=== PATIENT | male | born 1950 | race Caucasian/White ===

== ENCOUNTER 2016-05-20 14:26 | Outpatient (CLI) | payer MEDICARE, BC, OTHER | END 2016-05-20 14:27 | disposition home or self-care (01) | DX: R05 Cough (principal) ==

== ENCOUNTER 2016-07-10 12:04 | Outpatient (CLI) | payer MEDICARE, BC, OTHER ==
[2016-07-10 17:02] VITALS: BP 130/90
--- NOTE | 2016-07-11 13:43 | CARDIAC PROCEDURE NOTE ---
DATE OF SERVICE: PROCEDURE: Ahmet protocol treadmill for echocardiographic imaging. INDICATIONS: A 66-year-old male with atypical chest pain and positive cardiac risk factors. DESCRIPTION OF PROCEDURE: The patient was exercised in the standard fashion on Ahmet protocol for jus t shy of 9 minutes. He achieved greater than 85% maximum predicted heart rate. He had no diagnostic S T or T-wave changes. His blood pressure response was hypertensive. Some baseline PACs and PVCs resolv ed with exercise and returned with recovery. He experienced no chest pain, lightheadedness or other s ymptoms. IMPRESSION: Hypertensive response to exercise but otherwise unremarkable treadmill test performed for echocardiographic imaging. See cardiac report for details. JOB #: [id number] EXT JOB #:[id number]
== END 2016-07-10 12:05 | disposition home or self-care (01) ==
LOC: DI 12:04
PROVIDERS: ATTEND Physician Assistant Medical
DX: I10 Essential (primary) hypertension (principal); E78.5 Hyperlipidemia, unspecified; G47.33 Obstructive sleep apnea (adult) (pediatric); K21.9 Gastro-esophageal reflux disease without esophagitis
CPT/HCPCS: 93350

== ENCOUNTER 2016-10-16 12:00 | Day surgery (SDC) | payer MEDICARE, BC, OTHER ==
[2016-10-16] MEDS ORDERED: LACTATED RINGERS 1,000 ML IV ONE (12:20)
[2016-10-16] MEDS ORDERED: fentaNYL 100 MCG/2 ML VIAL IVP ONE (13:24)
[2016-10-16] MEDS ORDERED: MIDAZOLAM 2 MG/2 ML VIAL IVP ONE (13:24)
[2016-10-16 14:14] VITALS: BP 113/74
== END 2016-10-16 12:01 | disposition home or self-care (01) ==
LOC: SDS 12:00
PROVIDERS: ATTEND Internal Medicine
PROC: 0DBM8ZX Excision of Descending Colon, Via Natural or Artificial Opening Endoscopic, Diagnostic (ICD-10-PCS; principal; 2016-10-16 13:00)
DX: Z12.11 Encounter for screening for malignant neoplasm of colon (principal); D12.4 Benign neoplasm of descending colon; K57.30 Diverticulosis of large intestine without perforation or abscess without bleeding; K64.4 Residual hemorrhoidal skin tags; K64.8 Other hemorrhoids
CPT/HCPCS: 45380; 88305; J7120

== ENCOUNTER 2016-10-22 09:16 | Outpatient (CLI) | payer MEDICARE, BC, OTHER ==
[2016-10-22 09:37] LABS: BASOPHILS # (AUTO) 0.1 10^3/uL (0.0-0.1); BASOPHILS % (AUTO) 1.4 %; EOSINOPHILS # (AUTO) 0.2 10^3/uL (0.0-0.7); EOSINOPHILS % (AUTO) 4.1 %; HCT - HEMATOCRIT 39.4 % (42.0-52.0); HGB - HEMOGLOBIN 13.7 g/dL (14.0-18.0); LYMPHOCYTES # (AUTO) 1.5 10^3/uL (1.5-3.5); LYMPHOCYTES % (AUTO) 37.9 %; MEAN CORPUSCULAR HEMOGLOBIN 31.2 pg (27.0-31.0); MEAN CORPUSCULAR HGB CONC 34.8 g/dL (32.0-36.0); MEAN CORPUSCULAR VOLUME 89.7 fL (80.0-94.0); MEAN PLATELET VOLUME 8.6 fL (7.4-11.4); MONOCYTES # (AUTO) 0.5 10^3/uL (0.0-1.0); MONOCYTES % (AUTO) 11.1 %; NEUTROPHILS # (AUTO) 1.9 10^3/uL (1.5-6.6); NEUTROPHILS % (AUTO) 45.5 %; NUCLEATED RED BLOOD CELLS AUTO 0.1 /100WBC; RED BLOOD COUNT 4.39 10^6/uL (4.70-6.10); RED CELL DISTRIBUTION WIDTH 12.7 % (12.0-15.0); UNCORRECTED WHITE BLOOD COUNT 4.1 x10^3/uL; WHITE BLOOD COUNT 4.1 x10^3/uL (4.8-10.8)
[2016-10-22 10:22] LABS: ALBUMIN/GLOBULIN RATIO 1.4 (1.0-2.2); BILIRUBIN,TOTAL 1.8 mg/dL (0.2-1.0); BUN - BLOOD UREA NITROGEN 20 mg/dL (6-20); CALCIUM 8.9 mg/dL (8.5-10.3); CARBON DIOXIDE - CO2 27 mmol/L (21-32); CHLORIDE 103 mmol/L (101-111); CHOL/HDL RATIO 3.8 (<5.0); CHOLESTEROL 132 mg/dL; CREATININE 1.2 mg/dL (0.6-1.2); GFR - MDRD 60 (>89); GLUCOSE 106 mg/dL (70-100); HDL CHOLESTEROL 35 mg/dL; LDL/HDL RATIO 2.3 (<3.6); SODIUM 137 mmol/L (135-145); TOTAL PROTEIN 7.2 g/dL (6.7-8.2); TRIGLYCERIDES 83 mg/dL; VLDL CHOLESTEROL 17 mg/dL
== END 2016-10-22 09:17 | disposition home or self-care (01) ==
LOC: LAB 09:16
PROVIDERS: ATTEND Physician Assistant Medical
DX: Z12.5 Encounter for screening for malignant neoplasm of prostate (principal); I10 Essential (primary) hypertension; Z11.59 Encounter for screening for other viral diseases; Z72.89 Other problems related to lifestyle; E88.81 Metabolic syndrome and other insulin resistance; Z79.899 Other long term (current) drug therapy
CPT/HCPCS: 36415; 80053; 80061; 84443; 85025; 86803; G0103; 84153

== ENCOUNTER 2017-06-24 13:26 | Outpatient (CLI) | payer MEDICARE, BC, OTHER ==
[~2017-06-24 13:26] MED LIST: GADOBUTROL 10 MMOL/10 ML SYRINGE ONE
[2017-06-24] MEDS ORDERED: GADOBUTROL 10 MMOL/10 ML SYRINGE IVP ONE (14:39)
--- NOTE | 2017-06-25 07:59 | MRI Report ---
EXAM: MRI CERVICAL SPINE WITHOUT CONTRAST EXAM DATE: 06/24/2017 02:04 PM. CLINICAL HISTORY: 67-year-old male with lightheadedness, cervical radiculopathy, unable to turn head to left. COMPARISONS: MRI brain 06/24/2017 TECHNIQUE: Multiplanar, multisequence T1-weighted and fluid-sensitive sequences of the cervical spine without contrast. Other: None. FINDINGS: Neurologic Structures: The visualized posterior fossa structures are unremarkable. No signal abnormal ity in the visualized spinal cord. Alignment: No scoliosis or spondylolisthesis. Bone Marrow: No gross fractures or bone lesions. Modic type I degenerative endplate changes at T1-T2 level with endplate edema. Modic type II degenerative endplate changes at C4-C5 level. Interspace Levels/Facets: C1-C2: Unremarkable. C2-C3: Mild right facet arthropathy. No significant central canal or foraminal narrowing. C3-C4: Moderate right and mild left facet arthropathy. Mild diffuse disk bulge. Mild anterior dural c ompression. No significant central canal narrowing. Obux-og-udwgbxcq right and mild left foraminal na rrowing. C4-C5: Moderate disk height loss and desiccation. Prominent posterior disk osteophyte complex, asymme tric to the left. Moderate uncovertebral spurring bilaterally. Fhgm-wl-qdmdcioj bilateral facet arthr opathy. Moderate central canal narrowing with mild flattening of the cord. Moderate to severe left an d moderate right foraminal narrowing. C5-C6: Moderate disk height loss and desiccation. Prominent posterior disk osteophyte complex. Modera te bilateral uncovertebral spurring. Mild bilateral facet arthropathy. Moderate central canal narrowi ng with flattening of the cord. Severe left and moderate to severe right foraminal narrowing. C6-C7: Mild disk height loss and desiccation. Moderate posterior disk osteophyte complex. Mild bilate ral uncovertebral spurring. No significant facet arthropathy. Mild central canal narrowing. Moderate right and mild left foraminal narrowing. C7-T1: No significant central canal or foraminal narrowing. Musculature: Normal. No edema or fatty atrophy. Other: The paravertebral and prevertebral soft tissues are normal. IMPRESSION: 1. Moderate multilevel degenerative spondylosis, as detailed above and summarized below. No evidence of acute fracture or malalignment. No cord signal abnormality at any level. 2. Modic type I degenerative endplate changes at T1-T2 level with endplate edema. Modic type I change s may represent a source of pain. 3. C3-C4 level demonstrates no significant central canal narrowing. Lvko-jw-dbjqsbzp right and mild l eft foraminal narrowing. 4. C4-C5 level demonstrates moderate central canal narrowing with mild flattening of the cord. Modera te to severe left and moderate right foraminal narrowing. 5. C5-C6 level demonstrates moderate central canal narrowing with flattening of the cord. Severe left and moderate to severe right foraminal narrowing. 6. C6-C7 level demonstrates mild central canal narrowing. Moderate right and mild left foraminal narr owing. [facility] Referring Provider Line: [phone] SITE ID: [id number]
--- NOTE | 2017-06-25 08:25 | MRI Report ---
EXAM: MRI BRAIN WITHOUT AND WITH CONTRAST EXAM DATE: 06/24/2017 02:42 PM. CLINICAL HISTORY: 67-year-old male with history of lightheadedness, vertigo periodically for one geena h. COMPARISON: MRI cervical spine obtained concurrently TECHNIQUE: Multiplanar, multisequence T1-weighted and fluid-sensitive MR sequences of the brain were performed. Sequences optimized for routine evaluation. Other: None. IV Contrast: Yes. 9 mL Gadavist FINDINGS: Brain Volume: Normal for age. Parenchyma: No acute hemorrhage, mass, or acute/subacute infarct. Likely chronic lacunar infarct righ t cerebellar hemisphere. Scattered T2/FLAIR hyperintense periventricular and deep white matter lesion s within cerebral hemispheres bilaterally. No parenchymal foci susceptibility artifact. No abnormal e nhancement. Ventricles/Cisterns: No hydrocephalus. No abnormal extra-axial fluid collection or hemorrhage. Orbits: Symmetric and unremarkable. Sella Turcica: The pituitary gland, cavernous sinuses, suprasellar cistern and optic chiasm are unrem arkable. IAC: Symmetric and unremarkable. Vasculature: Normal signal flow void is seen in the major arterial structures at the skull base. The dural sinuses are patent and enhance normally. Sinuses: No acute sinus disease. Bones: No focal pathologic appearing marrow signal changes. Other: None. IMPRESSION: 1. No MRI evidence of acute intracranial abnormality. Specifically, no evidence of acute or subacute infarct, acute intracranial hemorrhage, mass, midline shift, or hydrocephalus. No abnormal intracran ial enhancement. 2. Scattered periventricular and deep white matter T2/FLAIR hyperintensities, nonspecific, and can be seen with the entire gamut of white matter conditions, including migraine headaches and as sequela o f chronic microangiopathy. [facility] Referring Provider Line: [phone] SITE ID: [id number]
== END 2017-06-24 13:27 | disposition home or self-care (01) ==
LOC: DI 13:26
PROVIDERS: ATTEND Nurse Practitioner Primary Care
DX: R42 Dizziness and giddiness (principal); M47.892 Other spondylosis, cervical region
CPT/HCPCS: 70553; 72141; A9585

== ENCOUNTER 2017-10-30 08:00 | Outpatient (CLI) | payer MEDICARE, BC, OTHER ==
[2017-10-30 09:07] LABS: BASOPHILS # (AUTO) 0.1 10^3/uL (0.0-0.1); BASOPHILS % (AUTO) 1.1 %; EOSINOPHILS # (AUTO) 0.3 10^3/uL (0.0-0.7); EOSINOPHILS % (AUTO) 4.4 %; LYMPHOCYTES # (AUTO) 1.6 10^3/uL (1.5-3.5); LYMPHOCYTES % (AUTO) 27.9 %; MEAN CORPUSCULAR HEMOGLOBIN 31.6 pg (27.0-31.0); MEAN CORPUSCULAR HGB CONC 34.7 g/dL (32.0-36.0); MEAN CORPUSCULAR VOLUME 91.1 fL (80.0-94.0); MEAN PLATELET VOLUME 8.7 fL (7.4-11.4); MONOCYTES # (AUTO) 0.6 10^3/uL (0.0-1.0); MONOCYTES % (AUTO) 10.6 %; NEUTROPHILS # (AUTO) 3.3 10^3/uL (1.5-6.6); PLT - PLATELET COUNT 227 10^3/uL (130-450); RED BLOOD COUNT 4.75 10^6/uL (4.70-6.10); RED CELL DISTRIBUTION WIDTH 13.1 % (12.0-15.0); WHITE BLOOD COUNT 5.8 x10^3/uL (4.8-10.8)
[2017-10-30 09:50] LABS: ALBUMIN 4.4 g/dL (3.2-5.5); ALBUMIN/GLOBULIN RATIO 1.4 (1.0-2.2); ALKALINE PHOSPHATASE 55 IU/L (42-121); ALT ALANINE AMINOTRANSFERASE 40 IU/L (10-60); AST ASPARTATE AMINOTRANSFERASE 27 IU/L (10-42); BILIRUBIN,TOTAL 2.2 mg/dL (0.2-1.0); BUN - BLOOD UREA NITROGEN 19 mg/dL (6-20); CALCIUM 9.2 mg/dL (8.5-10.3); CARBON DIOXIDE - CO2 26 mmol/L (21-32); CHLORIDE 100 mmol/L (101-111); CHOL/HDL RATIO 3.7 (<5.0); CHOLESTEROL 178 mg/dL; CREATININE 1.1 mg/dL (0.6-1.2); CRP - C-REACTIVE PROTEIN < 1.0 mg/dL (0-1.0); GFR - MDRD 67 (>89); GLUCOSE 114 mg/dL (70-100); HDL CHOLESTEROL 48 mg/dL; LDL CHOLESTEROL,CALCULATED 103 mg/dL; LDL/HDL RATIO 2.1 (<3.6); SODIUM 137 mmol/L (135-145); TOTAL PROTEIN 7.6 g/dL (6.7-8.2); VLDL CHOLESTEROL 27 mg/dL
[2017-10-30 09:53] LABS: HB2 TOTAL 16.4 g/dL; HEMOGLOBIN A1C 0.59 g/dL; HEMOGLOBIN A1C % 5.4 % (4.6-6.2)
== END 2017-10-30 08:01 | disposition home or self-care (01) ==
LOC: LAB 08:00
PROVIDERS: ATTEND Physician Assistant Medical
DX: D53.9 Nutritional anemia, unspecified (principal); R73.9 Hyperglycemia, unspecified; Z79.899 Other long term (current) drug therapy; I10 Essential (primary) hypertension; E78.2 Mixed hyperlipidemia; R10.84 Generalized abdominal pain
CPT/HCPCS: 36415; 80053; 80061; 83036; 83721; 84443; 85025; 85651; 86140

== ENCOUNTER 2017-12-09 10:06 | Outpatient (CLI) | payer MEDICARE, BC, OTHER | END 2017-12-09 10:07 | disposition home or self-care (01) | LOC: SC 10:06 | PROVIDERS: ATTEND Nurse Practitioner Family | DX: G47.33 Obstructive sleep apnea (adult) (pediatric) (principal) | CPT/HCPCS: 99215; G0463; 99212 ==

== ENCOUNTER 2017-12-11 07:50 | Outpatient (CLI) | payer MEDICARE, BC, OTHER ==
--- NOTE | 2017-12-11 09:43 | Ultrasound Report ---
Reason: GILBERT'S SYNDROME Procedure Date: 12/11/2017 Accession Number: [id number] / [id number] Procedure: US - Abdomen Limited CPT Code: FULL RESULT: EXAM: Abdomen Limited DATE: 12/11/2017 8:41 AM CLINICAL HISTORY: GILBERT'S SYNDROME TECHNIQUE: Real-time scanning by the ammonia solution preparer was saved static images reviewed COMPARISON: Ultrasound abdomen 09/19/2014, CT abdomen pelvis 09/14/2015 FINDINGS: Liver: 16 cm longitudinally. Increased slightly heterogeneous echotexture consistent with fatty infiltration. No focal masses. Gallbladder: Negative. No stones. Wall thickness 1.7 mm. Common bile duct: 5 mm Right kidney: 11.6 cm longitudinally. No hydronephrosis, mass, or stone. Free fluid: None IMPRESSION: Stable ultrasound compared with 09/19/2014 redemonstrating fatty infiltration of the liver without focal masses or intrahepatic biliary ductal dilatation. No gallstones.
== END 2017-12-11 07:51 | disposition home or self-care (01) ==
LOC: DI 07:50
PROVIDERS: ATTEND Physician Assistant Medical
DX: E80.4 Gilbert syndrome (principal); K76.0 Fatty (change of) liver, not elsewhere classified
CPT/HCPCS: 76705

== ENCOUNTER 2018-04-21 10:51 | Outpatient (CLI) | payer MEDICARE, BC, OTHER | END 2018-04-21 10:52 | disposition home or self-care (01) | LOC: SC 10:51 | PROVIDERS: ATTEND Nurse Practitioner Family | DX: G47.33 Obstructive sleep apnea (adult) (pediatric) (principal) | CPT/HCPCS: 99214; G0463; 99212 ==

== ENCOUNTER 2018-10-13 15:19 | Outpatient (CLI) | payer MEDICARE, BC, OTHER ==
--- NOTE | 2018-10-14 14:41 | XRAY Report ---
Reason: OSTEOMYELITIS ACUTE Procedure Date: 10/13/2018 Accession Number: [id number] / [id number] Procedure: XR - Ankle 3 View RT CPT Code: FULL RESULT: EXAM: RIGHT ANKLE RADIOGRAPHY EXAM DATE: 10/13/2018 03:32 PM. CLINICAL HISTORY: Acute osteomyelitis. COMPARISON: None. TECHNIQUE: 3 views. FINDINGS: Bones: Ill-defined osseous density adjacent to the medial aspect of the medial malleolus, possibly periosteal reaction. No evident underlying bony erosion. Plantar and posterior calcaneal spurs. Small corticated osseous density adjacent to the tip of the medial malleolus representing an unfused ossicle versus sequela of remote trauma. No acute fracture. Joints: Normal alignment. The ankle mortise is symmetric. No tibiotalar joint effusion. Soft Tissues: No evident focal soft tissue swelling. IMPRESSION: Possible periosteal reaction adjacent to the medial malleolus, which could be seen with osteomyelitis if this is the site of concern. Recommend MRI with contrast if further evaluation is warranted. [facility]
== END 2018-10-13 15:20 | disposition home or self-care (01) ==
LOC: DI 15:19
PROVIDERS: ATTEND Family Medicine
DX: M86.171 Other acute osteomyelitis, right ankle and foot (principal)

== ENCOUNTER 2018-10-17 09:17 | Outpatient (CLI) | payer MEDICARE, BC, OTHER ==
--- NOTE | 2018-10-18 08:32 | MRI Report ---
Reason: PERIOSTITIS OF RIGHT ANKLE Procedure Date: 10/17/2018 Accession Number: [id number] / [id number] Procedure: MRI - Ankle RT W/O CPT Code: FULL RESULT: EXAM: RIGHT ANKLE/HINDFOOT MRI WITHOUT CONTRAST EXAM DATE: 10/17/2018 10:33 AM. CLINICAL HISTORY: Periostitis of the medial malleolus on radiographs. Concern for osteomyelitis. COMPARISON: ANKLE 3 VIEW RT 10/13/2018 3:23 PM. TECHNIQUE: Multiplanar, multisequence T1-weighted and fluid-sensitive sequences of the ankle/hindfoot without contrast. Other: None. FINDINGS: Bones: No fracture or malalignment. No signs of osteomyelitis. No significant degenerative changes. Traction osteophytes are present at the Achilles insertion on the calcaneus and there is a prominent plantar calcaneal spur, both visible on the earlier radiographs. Articular Cartilage: Minimal partial thickness chondromalacia of the medial talar dome. Tibiotalar cartilage elsewhere is preserved. Ligaments: The anterior and posterior tibiofibular, anterior and posterior talofibular, and calcaneofibular ligaments are intact. The deep deltoid ligament is mildly amorphous and indistinct and a small ossicle is present in its substance consistent with sequela of old partial tear. The superficial deltoid and spring ligaments are intact. Anterior Tendons: The tibialis anterior, extensor hallucis longus, and extensor digitorum longus tendons are unremarkable. Medial Tendons: Mild tibialis posterior tenosynovitis without tear. The flexor digitorum longus and flexor hallucis longus tendons are normal. Lateral Tendons: The peroneus brevis and longus are unremarkable. Achilles Tendon: The Achilles tendon is unremarkable. Musculature: No edema or fatty atrophy. Other: No effusions. The contents of the sinus tarsi and tarsal tunnel are unremarkable. No plantar fasciitis. Minimal medial ankle subcutaneous edema is present. IMPRESSION: 1. No signs of osteomyelitis. No bony abnormality of the medial malleolus. 2. Mild medial ankle subcutaneous edema is nonspecific. This could reflect cellulitis but could also reflect other noninfectious etiologies for lower extremity edema. 3. Evidence of old deep deltoid ligament sprain. 4. Very mild posterior tibial tenosynovitis. No associated tendon tear. [facility]
== END 2018-10-17 09:18 | disposition home or self-care (01) ==
LOC: DI 09:17
PROVIDERS: ATTEND Family Medicine
DX: R60.0 Localized edema (principal); M65.9 Synovitis and tenosynovitis, unspecified

== ENCOUNTER 2018-12-03 08:27 | Outpatient (CLI) | payer MEDICARE, BC, OTHER ==
[2018-12-03 09:04] LABS: BASOPHILS % (AUTO) 0.5 %; EOSINOPHILS # (AUTO) 0.2 10^3/uL (0.0-0.7); EOSINOPHILS % (AUTO) 3.8 %; HGB - HEMOGLOBIN 14.6 g/dL (14.0-18.0); LYMPHOCYTES # (AUTO) 1.8 10^3/uL (1.5-3.5); LYMPHOCYTES % (AUTO) 31.5 %; MEAN CORPUSCULAR HEMOGLOBIN 29.9 pg (27.0-31.0); MEAN CORPUSCULAR HGB CONC 33.1 g/dL (32.0-36.0); MEAN CORPUSCULAR VOLUME 90.2 fL (80.0-94.0); MONOCYTES # (AUTO) 0.6 10^3/uL (0.0-1.0); MONOCYTES % (AUTO) 10.6 %; NEUTROPHILS % (AUTO) 53.2 %; PLT - PLATELET COUNT 229 10^3/uL (130-450); RED BLOOD COUNT 4.89 10^6/uL (4.70-6.10); RED CELL DISTRIBUTION WIDTH 12.7 % (12.0-15.0); WHITE BLOOD COUNT 5.6 x10^3/uL (4.8-10.8)
[2018-12-03 09:37] LABS: ALBUMIN 4.2 g/dL (3.2-5.5); ALBUMIN/GLOBULIN RATIO 1.3 (1.0-2.2); ALKALINE PHOSPHATASE 51 IU/L (42-121); ALT ALANINE AMINOTRANSFERASE 34 IU/L (10-60); AST ASPARTATE AMINOTRANSFERASE 22 IU/L (10-42); BILIRUBIN,TOTAL 1.9 mg/dL (0.2-1.0); BUN - BLOOD UREA NITROGEN 14 mg/dL (6-20); CALCIUM 9.2 mg/dL (8.5-10.3); CARBON DIOXIDE - CO2 28 mmol/L (21-32); CHLORIDE 102 mmol/L (101-111); CHOL/HDL RATIO 6.5 (<5.0); CHOLESTEROL 261 mg/dL; CREATININE 1.1 mg/dL (0.6-1.2); GFR - MDRD 66 (>89); GLUCOSE 111 mg/dL (70-100); HDL CHOLESTEROL 40 mg/dL; LDL CHOLESTEROL,CALCULATED 173 mg/dL; LDL/HDL RATIO 4.3 (<3.6); SODIUM 137 mmol/L (135-145); TOTAL PROTEIN 7.5 g/dL (6.7-8.2); VLDL CHOLESTEROL 48 mg/dL
== END 2018-12-03 08:28 | disposition home or self-care (01) ==
LOC: LAB 08:27
PROVIDERS: ATTEND Nurse Practitioner
DX: I12.9 Hypertensive chronic kidney disease with stage 1 through stage 4 chronic kidney disease, or unspecified chronic kidney disease (principal); N18.9 Chronic kidney disease, unspecified; E66.3 Overweight; D53.9 Nutritional anemia, unspecified; R73.9 Hyperglycemia, unspecified; Z79.899 Other long term (current) drug therapy; E88.81 Metabolic syndrome and other insulin resistance; E78.2 Mixed hyperlipidemia
CPT/HCPCS: 36415; 80053; 80061; 83721; 84443; 85025

== ENCOUNTER 2019-01-15 12:18 | Outpatient (CLI) | payer MEDICARE, BC, OTHER ==
--- NOTE | 2019-01-15 14:53 | XRAY Report ---
Reason: RT LEG PAIN Procedure Date: 01/15/2019 Accession Number: [id number] / [id number] Procedure: XR - Femur 2V RT CPT Code: Final Report FULL RESULT: EXAM: RIGHT FEMUR RADIOGRAPHY EXAM DATE: 01/15/2019 12:45 PM. CLINICAL HISTORY: RT LEG PAIN. COMPARISON: KNEE 3 VIEW RT 01/15/2019 12:33 PM. TECHNIQUE: 2 views. FINDINGS: Bones: Normal. No fracture or bone lesion. Joints: The visualized hip and knee joints are normal. No effusions. Soft Tissues: Normal. No soft tissue swelling. IMPRESSION: Normal femur radiography. [facility]
--- NOTE | 2019-01-15 14:55 | XRAY Report ---
Reason: KNEE,LEG PAIN RIGHT Procedure Date: 01/15/2019 Accession Number: [id number] / [id number] Procedure: XR - Knee 3 View RT CPT Code: Final Report FULL RESULT: EXAM: RIGHT KNEE RADIOGRAPHY EXAM DATE: 01/15/2019 12:45 PM. CLINICAL HISTORY: KNEE, LEG PAIN RIGHT. COMPARISON: None. TECHNIQUE: 3 views. FINDINGS: Bones: No fractures or suspicious bone lesions. Anterior proximal tibial exostosis. Joints: Tibial spine spurring. No joint effusion or subluxation. Soft Tissues: Patellar enthesophytes. Elongated calcific density along posterior proximal tibia, question venous stasis. IMPRESSION: 1. Mild degenerative changes. 2. No joint effusion or fracture evident. [facility]
== END 2019-01-15 12:19 | disposition home or self-care (01) ==
LOC: DI 12:18
PROVIDERS: ATTEND Family Medicine
DX: M17.11 Unilateral primary osteoarthritis, right knee (principal); M79.604 Pain in right leg

== ENCOUNTER 2019-05-24 12:56 | Outpatient (CLI) | payer MEDICARE, BC, OTHER ==
--- NOTE | 2019-05-24 10:31 | SLEEP CARE CONSULTATION ---
Information from patient questionnaire entered by Cecilia Pike. I have reviewed and concur with the information entered by Cecilia Pike. This document represents the service I personally performed and the decisions made by me, Marilee Singh, RN, MSN, [employer]. History of Present Illness Previous diagnosis: Severe, Obstructive Sleep Apnea-Hypopnea Syndrome AHI: 49.7 Reason for follow up: annual Equipment type: CPAP Equipment obtained from: [employer] Mask style: Nasal pillows Backup mask available: Yes Last cushion change: 2 weeks ago Prior sleep studies: Yes CPAP Compliance Data - Data Reviewed with Patient Average duration of nightly device use: 4H 41M Compliance rate %: 45.6 (puts on every night except if ill ) Current pressure setting (cmH2O): 8-10 Humidity settin Average residual AHI: 2.3 Average large leak: 0s Subjective Missed days of use due to: reports: illness Patient concerns: reports: condensation in mask/hose, other (waking with mask off his face / he also has occasional insomnia and has difficulty returning to sleep ). denies: aerophagia, mask discomfort, air blowing in eyes, mask leak noise, nasal congestion, dry mouth, nose, throat, epistaxis Observed to snore while using device: No Current pressure setting perceived as: comfortable On therapy, patient: reports: sleeping better, awakening more refreshed, being more awake and alert during the day, more rested overall (He feels in the morning. ) Initial [place] Sleepiness Scale score: 7 Allergies and Home Medications Home medication list reviewed: No (no changes stated by patient ) Review of Systems Review of systems same as previous: Yes (no changes stated by patient) Physical Exam Height: 5 ft 7 in Impression and Plan 1. Obstructive Sleep Apnea-Hypopnea Syndrome, severe, with fair treatment compliance and good apnea control. On CPAP therapy, the patient has better sleep quality and is more rested overall. Patient's compliance has fallen since last seen one year ago. It appears he is waking with the mask off for unknown reason and that he is having intermittent insomnia for unknown reason and will take off the mask early as unable to sleep. Thus a sleep diary will be sent to patient for further evaluation of his sleep concerns and CPAP use. He is also waking to moisture in his mask and was advised to increase the heated hose. If no resolution, he can also reduce the humidity setting. Hopefully this correction will improve his CPAP use. I also explained compliance guidelines for CPAP use per insurance. I explained how his current CPAP use average of 4.7 hours is less than his annual last year where is average CPAP use was 6.9 hours. He is advised to use CPAP with all sleep. Patient's apnea severity and rationale for treatment to reduce apnea, improve sleep quality. Patient is pleased with treatment benefit. He states despite reduced compliance noted, he feels great in the morning. * Continue CPAP pressure at 8-10 cmH2O * Complete sleep diary * Notify me if snoring with mask or feeling that the pressure is too much or too little * Call this office if any problems using CPAP * Return for follow up in 1-2 months , or sooner if concerns arise Visit Type: Telehealth Phone Location of Provider: Office Time Spent with Patient (minutes): 15 Provider Statement: I spent 100% of the Telehealth Phone Call with the patient with greater than 50% spent counseling the patient and coordination of care.
== END 2019-05-24 12:57 | disposition home or self-care (01) ==
LOC: SC 12:56
PROVIDERS: ATTEND Nurse Practitioner Family
DX: G47.33 Obstructive sleep apnea (adult) (pediatric) (principal)

== ENCOUNTER 2019-08-12 15:25 | Outpatient (CLI) | payer MEDICARE, BC, OTHER ==
--- NOTE | 2019-08-12 16:24 | XRAY Report ---
PROCEDURE: Lumbar Spine 2 View INDICATIONS: NECK PAIN/BACK PAIN TECHNIQUE: 2 views of the lumbar spine were acquired. COMPARISON: None. FINDINGS: Bones: 5 hyk-hoj-pvevfem vertebrae are present. There is normal bony alignment. No vertebral body compression fractures. No suspicious bony lesions. Multilevel disc space narrowing and endplate ost eophyte formation, worst at L5-S1, indicating degenerative disc disease. Facet hypertrophy throughout the mid and lower lumbar spine. Grade 1 anterolisthesis of L5 on S1. Soft tissues: Overlying bowel gas pattern is normal. No suspicious soft tissue calcifications. IMPRESSION: 1. Multilevel degenerative disc and facet disease. 2. No acute fracture. No osseous lesion. If symptoms and/or clinical suspicion for pathology continue , further assessment with repeat plain films, or advanced imaging (e.g., CT, MRI, or bone scan) is re commended for further assessment. Reviewed by: Tamar Michel MD on 08/12/2019 4:23 PM PDT Approved by: Tamar Michel MD on 08/12/2019 4:23 PM PDT Station ID: [id number]
--- NOTE | 2019-08-12 16:24 | XRAY Report ---
PROCEDURE: Cervical Spine 2 View INDICATIONS: NECK PAIN/BACK PAIN TECHNIQUE: 3 view(s) of the cervical spine were acquired. COMPARISON: None. FINDINGS: Bones: No fractures or dislocations to the C7 level. The lateral masses of C1 appear intact on the odontoid view. No suspicious bony lesions. Disc space narrowing and endplate osteophyte formation a t C3-C4, C4-C5, C5-C6, and C6-C7 are present, indicating degenerative disc disease. Soft tissues: No prevertebral soft tissue swelling. IMPRESSION: Multilevel degenerative disc disease. No acute fracture. No osseous lesion. If symptoms and/or clinical suspicion for pathology continue, further assessment with repeat plain films, or adva nced imaging (e.g., CT, MRI, or bone scan) is recommended for further assessment. Reviewed by: Tamar Michel MD on 08/12/2019 4:22 PM PDT Approved by: Tamar Michel MD on 08/12/2019 4:22 PM PDT Station ID: [id number]
== END 2019-08-12 15:26 | disposition home or self-care (01) ==
LOC: DI 15:25
PROVIDERS: ATTEND Nurse Practitioner
DX: M50.31 Other cervical disc degeneration, high cervical region (principal); M47.816 Spondylosis without myelopathy or radiculopathy, lumbar region; M43.17 Spondylolisthesis, lumbosacral region
CPT/HCPCS: 72040; 72100

== ENCOUNTER 2019-10-01 08:19 | Outpatient (CLI) | payer MEDICARE, BC, OTHER ==
--- NOTE | 2019-10-01 10:21 | MRI Report ---
PROCEDURE: Cervical Spine W/O INDICATIONS: LUMBOSACRAL SPONDYLOSIS WITH RADICULOPATHY,CHRONIC TECHNIQUE: Noncontrast sagittal T1 spin echo and T2 fast spin echo, coronal T2, sagittal STIR, foraminal oblique sagittal T2 fast spin echo, and axial gradient echo or T2 fast spin echo through the cervical spine. COMPARISON: Plain films of the cervical spine dated 08.12.19. Cervical spine MRI dated 06.24.17. FINDINGS: Image quality: Excellent. Alignment and Curvature: There is loss of normal cervical lordosis. There is mild grade 1 retrolisth esis of C3 on C4, C4 on C5, and C6 on C7. Bone Marrow: Marrow demonstrates normal overall signal. Mild reactive signal within the end plates adjacent to the C2-C3, C3-C4, C4-C5, C5-C6, C6-C7, and C7-T1 intervertebral discs. Spinal Cord: Visualized spinal cord has normal size and signal. No cerebellar tonsillar herniation. Paraspinous Soft Tissues: No paravertebral masses. Prevertebral soft tissues are normal in thicknes s. C2-C3: Moderate disc desiccation. Mild diffuse disc bulge. Mild facet and uncovertebral hypertrophy bilaterally. Mild canal stenosis. Mild bilateral foraminal stenosis. No change. C3-C4: Congenital canal stenosis. Moderate disc desiccation. Mild diffuse disc bulge. Mild bilatera l facet and uncovertebral hypertrophy. Mild canal stenosis. Moderate right and mild left foraminal st enosis. No change. C4-C5: Congenital canal stenosis. Moderate disc height loss and desiccation. Mild diffuse disc bulge /osteophyte with superimposed left posterolateral broad-based protrusion. Moderate facet and uncovert ebral hypertrophy bilaterally. Severe canal stenosis. Mild cord flattening. Severe bilateral foramina l stenosis with bilateral C5 nerve root compression. No change. C5-C6: Moderate disc height loss and desiccation. Moderate diffuse disc bulge. Congenital canal sten osis. Moderate facet and uncovertebral hypertrophy. Severe canal stenosis. Mild cord flattening. Mode rate right and severe left foraminal stenosis. Left C6 nerve root compression. No change. C6-C7: Moderate disc height loss and desiccation. Mild diffuse disc bulge. Congenital canal stenosis . Mild facet and uncovertebral hypertrophy bilaterally. Mild canal stenosis. Mild bilateral foraminal stenosis. C7-T1: Mild disc height loss and desiccation. Mild diffuse disc bulge. Mild facet and uncovertebral hypertrophy. Mild canal stenosis. Mild bilateral foraminal stenosis. No change. IMPRESSION: 1. Diffuse congenital canal stenosis with superimposed multilevel degenerative disc and facet disease , as well as uncovertebral hypertrophy. 2. Multilevel canal stenoses, worst at C4-C5 and C5-C6 where there is mild cord flattening present. 3. Multilevel foraminal stenoses, worst at C4-C5 and C5-C6, where there is associated intraforaminal nerve root compression. Recommend correlation with clinical symptoms to ascertain relevance of these findings. Reviewed by: Tamar Michel MD on 10/01/2019 10:19 AM PDT Approved by: Tamar Michel MD on 10/01/2019 10:19 AM PDT Station ID: [id number]
--- NOTE | 2019-10-01 10:45 | MRI Report ---
PROCEDURE: Lumbar Spine W/O INDICATIONS: LUMBOSACRAL SPONDYLOSIS WITH RADICULOPATHY,CHRONIC TECHNIQUE: Noncontrast sagittal T1 spin echo and T2 fast echo, sagittal STIR, coronal T2, axial T1 and T2 fast s pin echo through the lumbar spine. 5 lumbar type vertebral bodies are present by plain film. COMPARISON: Plain films of the lumbar spine dated 08.12.19 FINDINGS: Image quality: Excellent. Alignment and Curvature: 5 lumbar type vertebral bodies are present by plain film, with a transitiona l element at S1. The numbering system will be as denoted on the [place] image panel. There is loss of nor mal lumbar lordosis. There is mild kyphosis at L1-L3. There is mild grade 1 anterolisthesis of L5 on S1. Bone Marrow: Marrow is of normal overall signal. No acute vertebral body compression fractures. Bi lateral L5-S1 pars interarticularis defects are present. Mild reactive signal within the endplates ad jacent to the T10-T11, T11-T12, T12-L1, L1-L2, L2-L3, L3-L4, L4-L5, and L5-S1 intervertebral discs. Spinal Cord: Conus medullaris terminates at the lower L2 level. Visualized cord demonstrates normal signal and size. Paraspinous Soft Tissues: No paravertebral masses. T10-T11: Moderate disc height loss and desiccation. Mild diffuse disc bulge. Mild facet and ligament flavum hypertrophy. There is moderate to severe canal stenosis. There is possible mild cord flattenin g. Suboptimally visualized bilateral neural foramina. T11-T12: Moderate disc height loss and desiccation. Mild diffuse disc bulge. Mild facet and ligament flavum hypertrophy. Mild epidural lipomatosis. There is moderate to severe canal stenosis. Possible m ild cord flattening. Moderate left and moderate to severe right foraminal stenosis, seen on the sagit genet views only. T12-L1: Moderate disc height loss and desiccation. Moderate diffuse disc bulge. Mild facet and ligam ent flavum hypertrophy. Mild epidural lipomatosis. Moderate to severe canal stenosis. Moderate bilate ral foraminal stenosis. L1-L2: Moderate disc desiccation. Mild disc height loss and diffuse disc bulge. Mild facet and lig ament flavum hypertrophy. Mild epidural lipomatosis. Mild canal stenosis. Mild bilateral foraminal st enosis. L2-L3: Severe disc height loss and desiccation. Mild diffuse disc bulge. Possible ankylosis. Mild facet and ligament flavum hypertrophy. Mild epidural lipomatosis. Mild canal stenosis. Mild bilateral foraminal stenosis. L3-L4: Moderate disc height loss and desiccation. Mild diffuse disc bulge/osteophyte. Mild facet an d ligament flavum hypertrophy. Mild epidural lipomatosis. Moderate canal stenosis. Moderate left and mild right foraminal stenosis. L4-L5: Mild disc height loss. Moderate disc desiccation. Mild facet and ligament flavum hypertrophy . Mild canal stenosis. Mild bilateral foraminal stenosis. L5-S1: Severe disc height loss and desiccation. Mild diffuse disc bulge/osteophyte. Mild facet and ligament flavum hypertrophy. Mild epidural lipomatosis. Mild canal stenosis. Severe bilateral foramin al stenosis. Bilateral right greater than left L5 nerve root compression. IMPRESSION: 1. 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 2. Multilevel degenerative disc and facet disease, in addition to epidural lipomatosis and ligamentum flavum hypertrophy. 3. Multilevel canal stenoses, worst at T10-T11 and T11-T12 where there is possible mild cord flatteni ng, seen on the sagittal views only. Dedicated thoracic spine MRI could be performed for further asse ssment, if clinically indicated. Moderate to severe canal stenosis at T12-L1 and moderate canal steno sis at L3-L4. 4. Grade I isthmic spondylolisthesis at L5-S1. 5. Multilevel foraminal stenoses, worst at L5-S1 where there is associated intraforaminal nerve root compression. Recommend correlation with clinical symptoms to ascertain relevance of this finding. Reviewed by: Tamar Michel MD on 10/01/2019 10:44 AM PDT Approved by: Tamar Michel MD on 10/01/2019 10:44 AM PDT Station ID: [id number]
== END 2019-10-01 08:20 | disposition home or self-care (01) ==
LOC: DI 08:19
PROVIDERS: ATTEND Nurse Practitioner
DX: M50.11 Cervical disc disorder with radiculopathy, high cervical region (principal); M48.02 Spinal stenosis, cervical region; M51.17 Intervertebral disc disorders with radiculopathy, lumbosacral region; M48.07 Spinal stenosis, lumbosacral region; M47.27 Other spondylosis with radiculopathy, lumbosacral region; R20.0 Anesthesia of skin
CPT/HCPCS: 72141; 72148

== ENCOUNTER 2019-12-07 11:04 | Outpatient (CLI) | payer MEDICARE, BC, OTHER ==
[2019-12-07 11:16] LABS: BASOPHILS % (AUTO) 0.7 %; EOSINOPHILS # (AUTO) 0.1 10^3/uL (0.0-0.7); EOSINOPHILS % (AUTO) 2.3 %; HGB - HEMOGLOBIN 14.2 g/dL (14.0-18.0); LYMPHOCYTES # (AUTO) 1.7 10^3/uL (1.5-3.5); LYMPHOCYTES % (AUTO) 29.7 %; MEAN CORPUSCULAR HEMOGLOBIN 30.2 pg (27.0-31.0); MEAN CORPUSCULAR HGB CONC 32.1 g/dL (32.0-36.0); MEAN CORPUSCULAR VOLUME 94.3 fL (80.0-94.0); MEAN PLATELET VOLUME 9.8 fL (7.4-11.4); MONOCYTES # (AUTO) 0.5 10^3/uL (0.0-1.0); MONOCYTES % (AUTO) 8.5 %; NEUTROPHILS # (AUTO) 3.3 10^3/uL (1.5-6.6); NEUTROPHILS % (AUTO) 58.4 %; PLT - PLATELET COUNT 238 10^3/uL (130-450); RED CELL DISTRIBUTION WIDTH 12.3 % (12.0-15.0); WHITE BLOOD COUNT 5.6 x10^3/uL (4.8-10.8)
[2019-12-07 11:29] LABS: ALBUMIN 4.3 g/dL (3.2-5.5); ALBUMIN/GLOBULIN RATIO 1.3 (1.0-2.2); ALKALINE PHOSPHATASE 58 IU/L (42-121); ALT ALANINE AMINOTRANSFERASE 29 IU/L (10-60); AST ASPARTATE AMINOTRANSFERASE 22 IU/L (10-42); BILIRUBIN,TOTAL 2.1 mg/dL (0.2-1.0); BUN - BLOOD UREA NITROGEN 15 mg/dL (6-20); CARBON DIOXIDE - CO2 25 mmol/L (21-32); CHLORIDE 102 mmol/L (101-111); CHOL/HDL RATIO 3.7 (<5.0); CHOLESTEROL 177 mg/dL; CREATININE 1.1 mg/dL (0.6-1.2); GLUCOSE 109 mg/dL (70-100); HDL CHOLESTEROL 48 mg/dL; LDL CHOLESTEROL,CALCULATED 111 mg/dL; LDL/HDL RATIO 2.3 (<3.6); SODIUM 137 mmol/L (135-145); TOTAL PROTEIN 7.6 g/dL (6.7-8.2); VLDL CHOLESTEROL 18 mg/dL
== END 2019-12-07 11:05 | disposition home or self-care (01) ==
LOC: LAB 11:04
PROVIDERS: ATTEND Family Medicine
DX: E78.2 Mixed hyperlipidemia (principal); K57.30 Diverticulosis of large intestine without perforation or abscess without bleeding; I12.9 Hypertensive chronic kidney disease with stage 1 through stage 4 chronic kidney disease, or unspecified chronic kidney disease; N18.9 Chronic kidney disease, unspecified; D53.9 Nutritional anemia, unspecified; R73.9 Hyperglycemia, unspecified; Z79.899 Other long term (current) drug therapy; E88.81 Metabolic syndrome and other insulin resistance
CPT/HCPCS: 36415; 80053; 80061; 83721; 84443; 85025

== ENCOUNTER 2020-10-26 07:53 | Outpatient (CLI) | payer MEDICARE, BC, OTHER ==
[2020-10-26 08:23] LABS: BASOPHILS % (AUTO) 0.8 %; EOSINOPHILS # (AUTO) 0.3 10^3/uL (0.0-0.7); EOSINOPHILS % (AUTO) 4.7 %; HCT - HEMATOCRIT 41.8 % (42.0-52.0); HGB - HEMOGLOBIN 14.1 g/dL (14.0-18.0); LYMPHOCYTES # (AUTO) 1.4 10^3/uL (1.5-3.5); LYMPHOCYTES % (AUTO) 27.3 %; MEAN CORPUSCULAR HEMOGLOBIN 31.6 pg (27.0-31.0); MEAN CORPUSCULAR HGB CONC 33.7 g/dL (32.0-36.0); MEAN CORPUSCULAR VOLUME 93.7 fL (80.0-94.0); MEAN PLATELET VOLUME 9.8 fL (7.4-11.4); MONOCYTES # (AUTO) 0.5 10^3/uL (0.0-1.0); MONOCYTES % (AUTO) 9.5 %; NEUTROPHILS % (AUTO) 57.5 %; PLT - PLATELET COUNT 228 10^3/uL (130-450); RED BLOOD COUNT 4.46 10^6/uL (4.70-6.10); WHITE BLOOD COUNT 5.3 x10^3/uL (4.8-10.8)
[2020-10-26 08:41] LABS: ALBUMIN 4.4 g/dL (3.2-5.5); ALBUMIN/GLOBULIN RATIO 1.3 (1.0-2.2); ALKALINE PHOSPHATASE 51 IU/L (42-121); ALT ALANINE AMINOTRANSFERASE 31 IU/L (10-60); AST ASPARTATE AMINOTRANSFERASE 21 IU/L (10-42); BILIRUBIN,TOTAL 2.1 mg/dL (0.2-1.0); BUN - BLOOD UREA NITROGEN 17 mg/dL (6-20); CALCIUM 8.9 mg/dL (8.5-10.3); CARBON DIOXIDE - CO2 25 mmol/L (21-32); CHLORIDE 102 mmol/L (101-111); CHOLESTEROL 180 mg/dL; GFR - MDRD 74 (>89); GLUCOSE 120 mg/dL (70-100); HDL CHOLESTEROL 45 mg/dL; LDL CHOLESTEROL,CALCULATED 114 mg/dL; LDL/HDL RATIO 2.5 (<3.6); POTASSIUM 4.1 mmol/L (3.5-5.0); SODIUM 137 mmol/L (135-145); TOTAL PROTEIN 7.7 g/dL (6.7-8.2); TRIGLYCERIDES 105 mg/dL; VLDL CHOLESTEROL 21 mg/dL
[2020-10-26 10:42] LABS: ESTIMATED AVERAGE GLUCOSE 114 mg/dL (70-100); HEMOGLOBIN A1c% 5.6 % (4.27-6.07)
== END 2020-10-26 07:54 | disposition home or self-care (01) ==
LOC: LAB 07:53
PROVIDERS: ATTEND Family Medicine
DX: E88.81 Metabolic syndrome and other insulin resistance (principal); I10 Essential (primary) hypertension
CPT/HCPCS: 36415; 80053; 80061; 83036; 83721; 85025

== ENCOUNTER 2021-02-22 08:25 | Outpatient (CLI) | payer MEDICARE, BC, OTHER ==
--- NOTE | 2021-02-22 11:37 | XRAY Report ---
PROCEDURE: Chest 2 View X-Ray INDICATIONS: HYPERTENSION TECHNIQUE: 2 view(s) of the chest. COMPARISON: None. FINDINGS: Surgical changes and devices: None. Lungs and pleura: No pleural effusions or pneumothorax. Lungs are clear. Mediastinum: Mediastinal contours are normal. Heart size is normal. Bones and chest wall: Multilevel degenerative changes thoracic spine. No suspicious bony abnormaliti es. Soft tissues appear unremarkable. IMPRESSION: No acute cardiopulmonary abnormality Reviewed by: Albert Carmichael on 02/22/2021 11:35 AM [facility] [[email or web address]] Approved by: Albert Carmichael on 02/22/2021 11:35 AM [facility] [[email or web address]] Station ID: [id number]
== END 2021-02-22 08:26 | disposition home or self-care (01) ==
LOC: DI 08:25
PROVIDERS: ATTEND Physician Assistant Medical
DX: I10 Essential (primary) hypertension (principal)

== ENCOUNTER 2021-05-16 09:45 | Outpatient (CLI) | payer MEDICARE, BC, OTHER ==
[2021-05-16 12:13] LABS: BASOPHILS % (AUTO) 0.8 %; EOSINOPHILS # (AUTO) 0.2 10^3/uL (0.0-0.7); EOSINOPHILS % (AUTO) 3.2 %; HCT - HEMATOCRIT 40.9 % (42.0-52.0); HGB - HEMOGLOBIN 13.8 g/dL (14.0-18.0); LYMPHOCYTES # (AUTO) 1.6 10^3/uL (1.5-3.5); LYMPHOCYTES % (AUTO) 31.5 %; MEAN CORPUSCULAR HEMOGLOBIN 30.9 pg (27.0-31.0); MEAN CORPUSCULAR HGB CONC 33.7 g/dL (32.0-36.0); MEAN CORPUSCULAR VOLUME 91.7 fL (80.0-94.0); MEAN PLATELET VOLUME 11.1 fL (7.4-11.4); MONOCYTES # (AUTO) 0.5 10^3/uL (0.0-1.0); MONOCYTES % (AUTO) 9.3 %; NEUTROPHILS # (AUTO) 2.7 10^3/uL (1.5-6.6); PLT - PLATELET COUNT 233 10^3/uL (130-450); RED BLOOD COUNT 4.46 10^6/uL (4.70-6.10); RED CELL DISTRIBUTION WIDTH 12.1 % (12.0-15.0)
[2021-05-16 12:31] LABS: ALBUMIN 4.3 g/dL (3.2-5.5); ALBUMIN/GLOBULIN RATIO 1.5 (1.0-2.2); CALCIUM 9.3 mg/dL (8.5-10.3); CREATININE 1.1 mg/dL (0.6-1.2); POTASSIUM 4.3 mmol/L (3.5-5.0); TOTAL PROTEIN 7.2 g/dL (6.7-8.2)
[2021-05-16 12:55] LABS: ESTIMATED AVERAGE GLUCOSE 114 mg/dL (70-100); HEMOGLOBIN A1c% 5.6 % (4.27-6.07)
[2021-05-16 14:23] LABS: THYROID STIMULATING HORMONE 1.97 uIU/mL (0.34-5.60)
== END 2021-05-16 09:46 | disposition home or self-care (01) ==
LOC: LAB.N 09:45
PROVIDERS: ATTEND Family Medicine
DX: I10 Essential (primary) hypertension (principal); G62.9 Polyneuropathy, unspecified; E88.81 Metabolic syndrome and other insulin resistance
CPT/HCPCS: 36415; 80053; 82607; 83036; 84425; 84443; 85025

== ENCOUNTER 2021-05-30 10:38 | Outpatient (CLI) | payer MEDICARE, BC, OTHER ==
[2021-05-30 11:10] VITALS: BP 127/77
--- NOTE | 2021-05-30 11:10 | SLEEP CARE CONSULTATION ---
Information from patient questionnaire entered by Vilma Miles MA. I have reviewed and concur with the information entered by Vimla Miles MA. This document represents the service I personally performed and the decisions made by , Yudith Worrell ARNP. History of Present Illness Service Date and Time: 05/30/2021 1038 Previous diagnosis: Severe, Obstructive Sleep Apnea-Hypopnea Syndrome AHI: 49.7 Reason for follow up: annual (LAST SEEN 05/2019, ) Equipment type: CPAP Equipment obtained from: [employer] (getting supplies as needed) Mask style: Nasal pillows Mask brand: [employer]ironics Backup mask available: Yes (old mask) Last cushion change: 2 days ago Prior sleep studies: Yes HPI additional information: ARCHIE BRENNER was diagnosed to have severe, AHI 49.7, obstructive sleep apnea- hypopnea syndrome and returned today for CPAP therapy annual follow-up. Sleep Study - Results Prior sleep studies: Yes CPAP Compliance Data - Data Reviewed with Patient Average duration of nightly device use: 5 hours 53 minutes Compliance rate %: 80 (30 days (58.3 120 days)) Current pressure setting (cmH2O): 8-10 Humidity settin Heated hose settin Average residual AHI: 2.2 Average large leak: 0 Subjective Missed days of use due to: reports: travel Patient concerns: reports: other (bloating during the day, not in morning). denies: aerophagia, mask discomfort, air blowing in eyes, mask leak noise, condensation in mask/hose, nasal congestion, dry mouth, nose, throat, epistaxis Observed to snore while using device: No Current pressure setting perceived as: comfortable On therapy, patient: reports: sleeping better, awakening more refreshed, being more awake and alert during the day, more rested overall. denies: drowsiness while driving Initial [place] Sleepiness Scale score: 7 Current [place] Sleepiness Scale score: 7 (05/2021) Allergies and Home Medications Known drug allergies: No Drug allergies reviewed: Yes Home medication list reviewed: Yes (no changes) Allergy and home medication list: Allergies No Known Drug Allergies Allergy (Verified 06/11/13 14:51) Review of Systems Review of systems same as previous: Yes (no changes) Physical Exam Vital signs obtained and entered by: Kimberly MILES CMA [facility] Blood Pressure: 127/77 (right, pulse 79, resp 18, ) Heart Rate: 76 O2 Saturation: 96 (clothe) Height: 5 ft 7 in Weight: 205 lb (per patient w/o clothes) Body Mass Index: 32.1 BMI Classification: Obese Impression and Plan 1. Obstructive Sleep Apnea-Hypopnea Syndrome, severe, with good treatment compliance and good apnea control. On CPAP therapy, the patient has better sleep quality and is more rested overall. I informed the patient that [employer] has a recall on several devices like the patients machine (RemStar 60 series). Patient denies any black particles seen in machine or hoses, any unusual odors coming from device. Patient has not experienced any physical symptoms such as upper airway irritation, headache, skin or eye irritation, asthma, nausea/vomiting, difficulty breathing or chest pain. If patient is not able to sleep due to waking up choking, gasping for air or other respiratory distress that they may decide to continue using it until it is either replaced or repaired. Since the patients current machine is at least 5 years old, the patient is opting to update their device with a device that is not on the recall. Thus, the CPAP will be updated. A DWO prescription will be made. Compliance guidelines for new device and follow up discussed. Patient voiced understanding and agreement with plan. Patient's apnea severity and rationale for treatment to reduce apnea, improve sleep quality and reduce cardiovascular and cerebrovascular events was reviewed. Patient was encouraged to try to lose weight to improve his overall health and to reduce apneas. * Continue auto CPAP pressure at 8-10 cmH2O * Update machine * Update supplies as needed * Notify me if snoring with mask or feeling that the pressure is too much or too little * Attempt to lose weight * Call this office if any problems using CPAP * Return for follow up one month after obtaining new device, or sooner if concerns arise Counseling Topics: Spare mask, Weight loss health impact Visit Type: In Office Time Spent with Patient (minutes): 25 Provider Statement: I spent 100% of the Face to Face Visit with the patient with greater than 50% spent counseling the patient and coordination of care.
== END 2021-05-30 10:39 | disposition home or self-care (01) ==
LOC: SC 10:38
PROVIDERS: ATTEND Nurse Practitioner Family
DX: G47.33 Obstructive sleep apnea (adult) (pediatric) (principal)
CPT/HCPCS: 99213; G0463; 99212

== ENCOUNTER 2021-05-31 06:56 | Outpatient (CLI) | payer MEDICARE, BC, OTHER ==
--- NOTE | 2021-05-31 08:37 | Ultrasound Report ---
PROCEDURE: Abdomen Complete INDICATIONS: HYPERBILIRUBINEMIA TECHNIQUE: Real-time scanning was performed of the abdominal and retroperitoneal organs, with image documentatio n. COMPARISON: Ultrasound dated 12/11/2017. FINDINGS: Liver: Liver is normal in size and homogeneous in echotexture. The liver is hyperechoic consistent with hepatic steatosis. There are areas of focal fatty sparing near the gallbladder. Gallbladder: Is normal Biliary ducts: Intrahepatic bile ducts are non-dilated. Extrahepatic bile duct caliber measures 3.7 mm. Normal is 6-7 mm or less in diameter, or 10 mm or less post-cholecystectomy. Pancreas: Visualized portions of the pancreas are sonographically normal. Spleen: Spleen is normal in size and homogeneous in echotexture. Kidneys: Kidneys are normal in size and echotexture. Right kidney measures 11.2 cm long; left kidne y measures 10.1 cm long. No hydronephrosis or nephrolithiasis. No solid masses. Aorta: Visualized aorta is normal in caliber at less than 3 cm. Iliacs: Proximal common iliac arteries are normal in caliber at less than 2.5 cm. IVC: Intrahepatic inferior vena cava is patent. Miscellaneous: No free abdominal fluid. IMPRESSION: 1. No acute abnormality of the abdomen. 2. Hepatic steatosis. Reviewed by: Albert Carmichael on 05/31/2021 8:36 AM PDT Approved by: Albert Carmichael on 05/31/2021 8:36 AM PDT Station ID: [id number]
== END 2021-05-31 06:57 | disposition home or self-care (01) ==
LOC: DI 06:56
PROVIDERS: ATTEND Family Medicine
DX: E80.6 Other disorders of bilirubin metabolism (principal); K76.0 Fatty (change of) liver, not elsewhere classified

== ENCOUNTER 2021-06-15 09:15 | Outpatient (CLI) | payer MEDICARE, BC, OTHER ==
[2021-06-15 13:03] LABS: CALCIUM 9.1 mg/dL (8.5-10.3); CREATININE 1.1 mg/dL (0.6-1.2)
== END 2021-06-15 09:16 | disposition home or self-care (01) ==
LOC: LAB.N 09:15
PROVIDERS: ATTEND Family Medicine
DX: I10 Essential (primary) hypertension (principal)
CPT/HCPCS: 36415; 80048

== ENCOUNTER 2021-11-07 08:08 | Outpatient (CLI) | payer MEDICARE, BC, OTHER ==
[2021-11-07 08:25] LABS: BASOPHILS % (AUTO) 0.4 %; EOSINOPHILS # (AUTO) 0.2 10^3/uL (0.0-0.7); EOSINOPHILS % (AUTO) 3.8 %; HCT - HEMATOCRIT 40.1 % (42.0-52.0); HGB - HEMOGLOBIN 13.8 g/dL (14.0-18.0); LYMPHOCYTES # (AUTO) 1.3 10^3/uL (1.5-3.5); LYMPHOCYTES % (AUTO) 28.3 %; MEAN CORPUSCULAR HEMOGLOBIN 31.5 pg (27.0-31.0); MEAN CORPUSCULAR HGB CONC 34.4 g/dL (32.0-36.0); MEAN CORPUSCULAR VOLUME 91.6 fL (80.0-94.0); MEAN PLATELET VOLUME 9.9 fL (7.4-11.4); MONOCYTES # (AUTO) 0.6 10^3/uL (0.0-1.0); MONOCYTES % (AUTO) 12.3 %; NEUTROPHILS # (AUTO) 2.6 10^3/uL (1.5-6.6); PLT - PLATELET COUNT 210 10^3/uL (130-450); RED BLOOD COUNT 4.38 10^6/uL (4.70-6.10); WHITE BLOOD COUNT 4.7 x10^3/uL (4.8-10.8)
[2021-11-07 08:51] LABS: ALBUMIN 4.5 g/dL (3.2-5.5); ALBUMIN/GLOBULIN RATIO 1.4 (1.0-2.2); ALKALINE PHOSPHATASE 55 IU/L (42-121); ALT ALANINE AMINOTRANSFERASE 23 IU/L (10-60); AST ASPARTATE AMINOTRANSFERASE 23 IU/L (10-42); BILIRUBIN,TOTAL 2.7 mg/dL (0.2-1.0); BUN - BLOOD UREA NITROGEN 16 mg/dL (6-20); CALCIUM 9.5 mg/dL (8.5-10.3); CARBON DIOXIDE - CO2 27 mmol/L (21-32); CHLORIDE 103 mmol/L (101-111); CHOLESTEROL 184 mg/dL; CREATININE 1.1 mg/dL (0.6-1.2); GFR - MDRD 66 (>89); GLUCOSE 114 mg/dL (70-100); HDL CHOLESTEROL 46 mg/dL; LDL CHOLESTEROL,CALCULATED 113 mg/dL; LDL/HDL RATIO 2.5 (<3.6); SODIUM 139 mmol/L (135-145); TOTAL PROTEIN 7.7 g/dL (6.7-8.2); TRIGLYCERIDES 123 mg/dL; VLDL CHOLESTEROL 25 mg/dL
[2021-11-07 13:54] LABS: ESTIMATED AVERAGE GLUCOSE 103 mg/dL (70-100); HEMOGLOBIN A1c% 5.2 % (4.27-6.07)
== END 2021-11-07 08:09 | disposition home or self-care (01) ==
LOC: LAB 08:08
PROVIDERS: ATTEND Family Medicine
DX: I10 Essential (primary) hypertension (principal); E78.2 Mixed hyperlipidemia; R73.9 Hyperglycemia, unspecified
CPT/HCPCS: 36415; 80053; 80061; 83036; 83721; 85025

== ENCOUNTER 2021-12-25 02:50 | Outpatient (CLI) | payer MEDICARE, BC, OTHER | END 2021-12-25 02:51 | disposition EMS.NT | LOC: EMS 02:50 | DX: R55 Syncope and collapse (principal); R11.2 Nausea with vomiting, unspecified; R19.7 Diarrhea, unspecified; R05.9 Cough, unspecified; R53.1 Weakness; R53.83 Other fatigue ==

== ENCOUNTER 2021-12-25 20:13 | Emergency (ER) | payer MEDICARE, BC, OTHER ==
[2021-12-25] MEDS ORDERED: IBUPROFEN 600 MG TABLET PO STA (20:28)
--- NOTE | 2021-12-25 21:10 | XRAY Report ---
PROCEDURE: Chest 1 View X-Ray INDICATIONS: Cough TECHNIQUE: One view of the chest was acquired. COMPARISON: 02/22/2021 FINDINGS: Surgical changes and devices: None. Lungs and pleura: An incomplete inspiratory result is noted, with low lung volumes and crowding of t he vascular markings. No focal infiltrates are seen. No large pneumothorax or large pleural effusion can be seen. Mediastinum: The aorta is prominent and tortuous. The cardiac contours are within normal limits. Bones and chest wall: No suspicious bony lesions. Age-appropriate degenerative changes are seen. Overlying soft tissues appear unremarkable. IMPRESSION: Low lung volumes, without focal infiltrates. Reviewed by: Maxx Orozco MD on 12/25/2021 8:09 PM [facility] Approved by: Maxx Orozco MD on 12/25/2021 8:09 PM [facility] Station ID: [id number]
[2021-12-25 21:42] LABS: CORONAVIRUS 229E-RESP PCR NOT DETECTED; CORONAVIRUS HKU1-RESP PCR NOT DETECTED; CORONAVIRUS NL63-RESP PCR NOT DETECTED; CORONAVIRUS OC43-RESP PCR NOT DETECTED
[2021-12-25 21:44] LABS: B. PARAPERTUSSIS- RESP PCR PAN NOT DETECTED; B. PERTUSSIS- RESP PCR PANEL NOT DETECTED; C. PNEUMONIAE- RESP PCR PANEL NOT DETECTED; HUMAN METAPNEUMOVIRUS NOT DETECTED; INFLUENZA A- RESP PCR PANEL NOT DETECTED; INFLUENZA B - RESP PCR PANEL NOT DETECTED; M. PNEUMONIAE- RESP PCR PANEL NOT DETECTED; PARAINFLUENZA VIRUS 1 NOT DETECTED; PARAINFLUENZA VIRUS 2 NOT DETECTED; PARAINFLUENZA VIRUS 3 NOT DETECTED; PARAINFLUENZA VIRUS 4 NOT DETECTED; RHINOVIRUS/ENTEROVIRUS NOT DETECTED; RSV- RESP PCR PANEL NOT DETECTED; SARS-CoV-2 -RESP PCR PANEL DETECTED
[2021-12-25 23:25] VITALS: BP 138/81
--- NOTE | 2021-12-26 03:32 | ED Physician Documentation ---
History of Present Illness - Stated complaint Stated Complaint: CHEST COLD/SORE THROAT - Chief complaint Chief Complaint: Resp - History obtained from History obtained from: Patient - Additonal information Additional information: 71yM presented with viral URI symptoms X few days as well as possible fainting episode yesterday morning. patient states he went to bathroom and then walked over and felt woozy, slumped over a table, and reports he passed out for 20-30 seconds. otherwise denies cp, soa, nausea. does endorse sore throat and rhinorrhea. Review of Systems Ten Systems: 10 systems reviewed and negative Constitutional: reports: Fever, Chills, Myalgias, Fatigue Nose: reports: Rhinorrhea / runny nose Throat: reports: Sore throat Cardiac: denies: Chest pain / pressure Respiratory: reports: Cough. denies: Dyspnea Neurologic: reports: Syncope PD PAST MEDICAL HISTORY - Past Medical History Past Medical History: Yes Cardiovascular: Hypertension, High cholesterol Respiratory: Sleep apnea, CPAP use Neuro: None Endocrine/Autoimmune: None GI: GERD, Colon polyps, Diverticulitis : None HEENT: None Psych: None Musculoskeletal: None Derm: None - Past Surgical History Past Surgical History: Yes General: Hiatal hernia repair - Present Medications Home Medications: Ambulatory Orders Medication Instructions Recorded Confirmed Calcium Carbonate [Calcium] 600 mg PO DAILY 06/14/13 10/15/16 Multivitamin [Multi-Vitamin Daily] 1 each PO DAILY 06/14/13 10/15/16 Atorvastatin Calcium 20 mg PO DAILY 10/15/16 10/15/16 Metoprolol Hoyt/Hydrochlorothiaz 1 each PO DAILY 10/15/16 10/15/16 [Metoprolol ER-Hctz 25-12.5 mg] Omeprazole [PriLOSEC] 20 mg PO DAILY 10/15/16 10/15/16 - Allergies Allergies/Adverse Reactions: Allergies Allergy/AdvReac Type Severity Reaction Status Date / Time No Known Drug Allergies Allergy Verified 12/25/21 20:32 - Social History Does the pt smoke?: No Smoking Status: Never smoker Does the pt drink ETOH?: Yes Does the pt have substance abuse?: No - Immunizations Immunizations are current?: Yes - POLST Patient has POLST: No PD ED PE NORMAL - Vitals Vital signs reviewed: Yes - General General: Alert and oriented X 3, No acute distress, Well developed/nourished - HEENT HEENT: Atraumatic, PERRL, EOMI, Moist mucous membranes, Pharynx benign, Other (clear rhinorrhea) - Neck Neck: Supple, no meningeal sign - Cardiac Cardiac: RRR - Respiratory Respiratory: No respiratory distress, Clear bilaterally - Abdomen Abdomen: Non tender, Non distended - Derm Derm: Normal color, Warm and dry - Extremities Extremities: No edema - Neuro Neuro: No motor deficit, No sensory deficit - Psych Psych: Normal mood, Normal affect Results - Vitals Vitals: Vital Signs - 24 hr 12/25/21 12/25/21 12/26/21 20:23 23:23 00:22 Temperature 38.7 C H 37.3 C Heart Rate 122 H 97 Respiratory 18 16 16 Rate Blood Pressure 164/92 H 138/81 H O2 Saturation 93 95 Oxygen O2 Source Room air - Labs Labs: Laboratory Tests 12/25/21 20:28 Nasal Adenovirus (PCR) NOT DETECTED Nasal B. parapertussis DNA (PCR) NOT DETECTED Nasal Coronavir 229E PCR NOT DETECTED Nasal Coronavir HKU1 PCR NOT DETECTED Nasal Coronavir NL63 PCR NOT DETECTED Nasal Coronavir OC43 PCR NOT DETECTED Nasal Enterovir/Rhinovir PCR NOT DETECTED Nasal Influenza B PCR NOT DETECTED Nasal Influenza A PCR NOT DETECTED Nasal Parainfluen 1 PCR NOT DETECTED Nasal Parainfluen 2 PCR NOT DETECTED Nasal Parainfluen 3 PCR NOT DETECTED Nasal Parainfluen 4 PCR NOT DETECTED Nasal RSV (PCR) NOT DETECTED Nasal B.pertussis DNA PCR NOT DETECTED Nasal C.pneumoniae (PCR) NOT DETECTED Manjit Human Metapneumo PCR NOT DETECTED Nasal M.pneumoniae (PCR) NOT DETECTED Nasal SARS-CoV-2 (PCR) DETECTED A PD MEDICAL DECISION MAKING - ED course ED course: offered paxlovid treatment and discussed risks and benefits. patient declined at this time. We discussed that he would likely be discharged to follow up with his primary care provider. he left prior to repeat vitals and prior to receiving paperwork. Departure - Departure Disposition: 01 Home, Self Care Clinical Impression: COVID-19 Condition: Good Instructions: COVID-19 [facility] Comments: You were seen in the ED for COVID-19. Please follow up with your primary care provider and return to the ED for any new or worsening symptoms or other con cerns.
== END 2021-12-26 03:00 | disposition home or self-care (01) ==
LOC: ED 20:13
DX: U07.1 COVID-19 (principal)
CPT/HCPCS: 71045; 87633; 99282; 99284; A9270

== ENCOUNTER 2022-11-20 08:53 | Outpatient (CLI) | payer MEDICARE, BC ==
[2022-11-20 09:22] LABS: ALBUMIN 4.6 g/dL (3.2-5.5); ALBUMIN/GLOBULIN RATIO 1.6 (1.0-2.2); ALKALINE PHOSPHATASE 64 IU/L (42-121); ALT ALANINE AMINOTRANSFERASE 34 IU/L (10-60); AST ASPARTATE AMINOTRANSFERASE 23 IU/L (10-42); BILIRUBIN,TOTAL 2.2 mg/dL (0.2-1.0); BUN - BLOOD UREA NITROGEN 11 mg/dL (6-20); CALCIUM 9.8 mg/dL (8.5-10.3); CARBON DIOXIDE - CO2 30 mmol/L (21-32); CHLORIDE 103 mmol/L (101-111); CHOL/HDL RATIO 3.9 (<5.0); CHOLESTEROL 177 mg/dL; CREATININE 1.1 mg/dL (0.6-1.3); GFR - MDRD 66 (>89); GLUCOSE 111 mg/dL (74-104); HDL CHOLESTEROL 45 mg/dL; LDL CHOLESTEROL,CALCULATED 102 mg/dL; LDL/HDL RATIO 2.3 (<3.6); POTASSIUM 4.5 mmol/L (3.5-4.5); SODIUM 138 mmol/L (135-145); TOTAL PROTEIN 7.5 g/dL (6.4-8.9); TRIGLYCERIDES 152 mg/dL (48-352); VLDL CHOLESTEROL 30 mg/dL
[2022-11-20 09:23] LABS: BASOPHILS % (AUTO) 0.9 %; EOSINOPHILS # (AUTO) 0.2 10^3/uL (0.0-0.7); EOSINOPHILS % (AUTO) 4.1 %; HCT - HEMATOCRIT 44.3 % (42.0-52.0); HGB - HEMOGLOBIN 15.1 g/dL (14.0-18.0); LYMPHOCYTES # (AUTO) 1.4 10^3/uL (1.5-3.5); LYMPHOCYTES % (AUTO) 30.3 %; MEAN CORPUSCULAR HEMOGLOBIN 31.5 pg (27.0-31.0); MEAN CORPUSCULAR HGB CONC 34.1 g/dL (32.0-36.0); MEAN CORPUSCULAR VOLUME 92.5 fL (80.0-94.0); MEAN PLATELET VOLUME 10.4 fL (7.4-11.4); MONOCYTES # (AUTO) 0.5 10^3/uL (0.0-1.0); MONOCYTES % (AUTO) 9.9 %; NEUTROPHILS # (AUTO) 2.6 10^3/uL (1.5-6.6); NEUTROPHILS % (AUTO) 54.6 %; PLT - PLATELET COUNT 231 10^3/uL (130-450); RED BLOOD COUNT 4.79 10^6/uL (4.70-6.10); RED CELL DISTRIBUTION WIDTH 12.2 % (12.0-15.0); WHITE BLOOD COUNT 4.7 x10^3/uL (4.8-10.8)
[2022-11-20 12:59] LABS: ESTIMATED AVERAGE GLUCOSE 114 mg/dL (70-100); HEMOGLOBIN A1c% 5.6 % (4.27-6.07)
== END 2022-11-20 08:54 | disposition home or self-care (01) ==
LOC: LAB 08:53
PROVIDERS: ATTEND Family Medicine
DX: I10 Essential (primary) hypertension (principal); E80.6 Other disorders of bilirubin metabolism; G62.9 Polyneuropathy, unspecified; R73.9 Hyperglycemia, unspecified; E78.2 Mixed hyperlipidemia; Z12.5 Encounter for screening for malignant neoplasm of prostate
CPT/HCPCS: 36415; 80053; 80061; 83036; 84443; 85025; G0103; 83721; 84153

== ENCOUNTER 2023-01-08 09:47 | Outpatient (CLI) | payer MEDICARE, BC ==
--- NOTE | 2023-01-08 17:06 | XRAY Report ---
PROCEDURE: Chest 2 View X-Ray INDICATIONS: ACUTE COUGH TECHNIQUE: 2 views of the chest were acquired. COMPARISON: Chest radiograph 12/25/2021. FINDINGS: Surgical changes and devices: None. Lungs and pleura: No pleural effusions or pneumothorax. Lung volumes are low. Minimal streaky opacit ies at the left lung base.. Mediastinum: Mediastinal contours appear normal. Heart size is normal. Bones and chest wall: No suspicious bony lesions. Overlying soft tissues appear unremarkable. IMPRESSION: Low lung volumes. Minimal streaky opacities at the left lung base which may represent mild atelectasi s or aspiration. Reviewed by: Kristen Flores MD on 01/08/2023 5:05 PM PST Approved by: Kristen Flores MD on 01/08/2023 5:05 PM PST Station ID: [id number]
== END 2023-01-08 09:48 | disposition home or self-care (01) ==
LOC: DI 09:47
PROVIDERS: ATTEND Physician Assistant
DX: R91.8 Other nonspecific abnormal finding of lung field (principal)